=== PATIENT | male | born 1980 | race African-American/Black ===

== ENCOUNTER 2019-02-12 10:46 | Day surgery (SDC) | payer OTHER ==
[2019-02-12] MEDS ORDERED: fentaNYL 100 MCG/2 ML VIAL IVP ONE (10:47)
[2019-02-12] MEDS ORDERED: MIDAZOLAM 2 MG/2 ML VIAL IVP ONE (10:47)
[2019-02-12] MEDS ORDERED: PROPOFOL 200 MG/20 ML VIAL IVP ONE (10:47)
[2019-02-12] MEDS ORDERED: DEXAMETHASONE 4 MG/ML VIAL IVP ONE (10:47)
[2019-02-12] MEDS ORDERED: KETOROLAC 30 MG/ML VIAL IVP ONE (10:47)
[2019-02-12] MEDS ORDERED: ONDANSETRON 4 MG/2 ML VIAL IVP ONE (10:47)
[2019-02-12] MEDS ORDERED: LACTATED RINGERS 1,000 ML IV ONE ×2 (11:15→14:32)
[2019-02-12] MEDS ORDERED: ceFAZolin 2 GM/50 ML 2 GM/50 ML BAG IV ONE (11:15)
--- NOTE | 2019-02-12 11:29 | ANESTHESIA ---
Pre-Anesthesia VS, & Labs - Diagnosis R trigger thumb - Procedure R thumb trigger finger release Vital Signs: Temp Pulse Resp BP Pulse Ox 36.3 C L 67 16 134/95 H 97 02/12/19 11:15 02/12/19 11:15 02/12/19 11:15 02/12/19 11:15 02/12/19 11:15 Height 5 ft 10 in Weight (kg) 104.33 kg - NPO >8 hours Home Medications and Allergies Home Medications: Ambulatory Orders Duloxetine HCl [Cymbalta] 60 mg PO DAILY 02/10/19 Omeprazole Magnesium [Prilosec] 20 mg PO DAILY 02/10/19 RX: Trazodone HCl 50 mg PO DAILY PM 02/10/19 SUMAtriptan [Imitrex] 25 mg PO PRN PRN 02/10/19 Sildenafil Citrate [Viagra] 50 mg PO PRN PRN 02/10/19 Duloxetine HCl [Cymbalta] 60 mg PO DAILY 02/10/19 Omeprazole Magnesium [Prilosec] 20 mg PO DAILY 02/10/19 SUMAtriptan [Imitrex] 25 mg PO PRN PRN 02/10/19 Sildenafil Citrate [Viagra] 50 mg PO PRN PRN 02/10/19 Trazodone HCl 50 mg PO DAILY PM 02/10/19 Allergies/Adverse Reactions: Allergies Allergy/AdvReac Type Severity Reaction Status Date / Time No Known Drug Allergies Allergy Verified 02/10/19 13:37 Anes History & Medical History - Anesthetic History Anesthesia Complications: reports: No previous complications Family history of Anesthesia Complications: Denies Family history of Malignant Hyperthermia: Denies - Medical History Cardiovascular: reports: None Pulmonary: reports: Sleep apnea, CPAP use Gastrointestinal: reports: GERD Urinary: reports: None Musculoskeletal: reports: Other Endocrine/Autoimmune: reports: None Skin: reports: None - Surgical History Orthopedic: ACL reconstruction Exam General: Alert, Oriented x3, Cooperative Dental: WNL Mouth Openin Fingerbreadth Neck Mobility: Normal Mallampati classification: II Thyromental Distance: 4-6 cm Respiratory: Lungs clear, Normal breath sounds Cardiovascular: Regular rate Neurological: Normal speech Mental/Cognitive Status: Alert/Oriented X3, Normal for patient Cognitive Status: Within normal limits Plan Anesthesia Type: General Consent for Procedure(s) Verified and Reviewed: Yes Code Status: Attempt Resuscitation ASA classification: 2-Mild systemic disease Is this case an emergency?: No
[2019-02-12] MEDS ORDERED: BUPIVACAINE 0.25% PF 10 ML VIAL ONE (12:22)
[2019-02-12] MEDS ORDERED: BUPIVACAINE 0.25% PF 30 ML VIAL SUBQ ONE ×2 (14:15)
[2019-02-12] MEDS ORDERED: ONDANSETRON 4 MG/2 ML VIAL IVP PRN (14:46)
[2019-02-12] MEDS ORDERED: oxyCODONE 5 MG TABLET PO PRN (14:46)
--- NOTE | 2019-02-12 14:53 | OPERATIVE REPORT ---
Operative Report - Other Other Information/Narrative: Date of Surgery: 12 February 2019 Pre-Op Diagnosis: Right thumb stenosing tenosynovitis Procedure: Right thumb A1 sobia release Postop Diagnosis: Same Primary Surgeon: Devin Sheehan Secondary Surgeon: None Complications: None Tourniquet Time: 16 minutes EBL: 1 cc Postoperative Protocol: No firm gripping for 2 weeks. Sutures out at 2 weeks. Indication For Surgery: 38-year-old male with 1 year of right thumb painful triggering and has not responded to splinting and activity modifications. 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 The risks, benefits, and alternatives were discussed. Risks include pain, bleeding, infection, damage to nearby structures, numbness, lack of symptom relief, need for further surgery, DVT, PE, stroke, and . Written consent was obtained. The patient was met in the preoperative holding on the day of the procedure. Operative extremity was signed. Consent was verified. They desire to proceed. They were brought to the operating room and placed in the supine position. General anesthesia was obtained. A well-padded forearm tourniquet was applied. They were prepped and draped in the standard fashion. A surgical timeout was held will be confirmed the patient procedure, identity, allergies, antibiotics, image,s laterality, and finger. All were in agreement we proceeded. The palpable nodule was felt at the base of the right thumb. I made an incision in line with the proximal thumb crease taking care to only go through the skin. The neurovascular structures were sought but not seen. blunt dissection was made with scissors down to the tendon sheath and the tissues were spread in line with the tendon and neurovascular structures. 3 blunt retractors were placed and the A1 sobia was identified. It was cut sharply with a knife from the distal to the proximal edge. A complete release was confirmed with the use of an elevator. Synovitis and thickening of the tendon was seen underneath it. I then flexed and extended the thumb and there was no catching. The wound was irrigated copiously and closed with horizontal mattress sutures. A sterile dressing was applied. He was transferred to the recovery room in good condition.
[2019-02-12 15:53] VITALS: BP 122/59
== END 2019-02-12 10:47 | disposition home or self-care (01) ==
LOC: SDS 10:46
PROVIDERS: ATTEND Orthopaedic Surgery
PROC: 0LN70ZZ Release Right Hand Tendon, Open Approach (ICD-10-PCS; principal; 2019-02-12 12:00)
DX: M65.311 Trigger thumb, right thumb (principal); G47.30 Sleep apnea, unspecified; K21.9 Gastro-esophageal reflux disease without esophagitis
CPT/HCPCS: 26055; J0690; J7120